=== PATIENT | male | born 1980 | race Caucasian/White ===

== ENCOUNTER 2023-12-12 17:56 | Observation (INO) | payer BC, SELFPAY ==
[2023-12-12] VITALS (8 sets, daily range): BP systolic 126–150; BP diastolic 86–106; PULSE 98–123; RESP 15–21; TEMP 36.9–38.3; O2SAT 93–97
--- NOTE | ~2023-12-12 | XR_ITS ---
EXAMINATION: XR chest 2V DATE: 12/12/2023 21:34 INDICATION: Multifocal pneumonia. TECHNIQUE: Frontal and lateral views of the chest were obtained. COMPARISON: Chest 2 views 05/08/2019, CT abdomen and pelvis 12/12/2023 FINDINGS: There are patchy airspace opacities in the mid and lower lung zones, consistent with pneumo stacie. No pleural effusion or pneumothorax. The heart size is normal. IMPRESSION: 1. Patchy airspace opacities in the mid and lower lung zones, consistent with pneumonia. Reviewed, dictated and finalized at location E. CATION COMMISSIONER IMPRESSION: 1. Patchy airspace opacities in the mid and lower lung zones, consistent with p neumonia.
--- NOTE | ~2023-12-12 | XR_ITS ---
EXAMINATION: XR chest 1V portable DATE: 12/14/2023 02:20 INDICATION: Left chest pain. Shortness of breath. TECHNIQUE: A single frontal view of the chest was obtained. COMPARISON: Chest 2 views 12/12/2023, CT abdomen and pelvis 12/12/2023 FINDINGS: There are patchy airspace opacities in the mid and lower lung zones. No pleural effusion or pneumothorax. The heart size is normal. IMPRESSION: 1. Worsened patchy airspace opacities in the mid and lower lung zones, consistent with pneumonia. Reviewed, dictated and finalized at location E. RADIANT ANALYST IMPRESSION: 1. Worsened patchy airspace opacities in the mid and lower lung zones, consiste nt with pneumonia.
--- NOTE | ~2023-12-12 | CT_ITS ---
EXAMINATION: CT abdomen pelvis w con DATE: 12/12/2023 20:01 INDICATION: Right upper quadrant abdominal pain. Vomiting. TECHNIQUE: Computed tomography (CT) of the abdomen and pelvis was performed with 100 mL Omnipaque 350 intravenous contrast. Automated exposure control and iterative reconstruction technique were employe d. The dose-length product was 487.91 mGy-cm. COMPARISON: Chest 2 views 05/08/2019 FINDINGS: The visualized portions of the lung bases demonstrate scattered nodules, groundglass opacit ies, and tree-in-bud opacities in the lower lobes, right middle lobe, and lingula, consistent with pn eumonia. No pleural effusion. The heart size is normal. No pericardial effusion. The liver, gallbladd er, spleen, pancreas, adrenal glands, and kidneys are normal. There are no dilated loops of bowel. Th e appendix is not visualized. There are no pathologically enlarged lymph nodes. There is no free intr aperitoneal fluid. There is severe lumbar spondylosis. IMPRESSION: 1. Multifocal pneumonia. Reviewed, dictated and finalized at location E. ACTORY MANAGER IMPRESSION: 1. Multifocal pneumonia.
--- NOTE | ~2023-12-12 | CT_ITS ---
EXAMINATION: CTA chest PE protocol DATE: 12/14/2023 11:31 INDICATION: Left-sided pleuritic chest pain. TECHNIQUE: Computed tomography angiography (CTA) of the chest was performed with 100 mL Omnipaque-350 intravenous contrast timed to evaluate the pulmonary arteries. Coronal maximum intensity projection 3D-reconstructions were created by the technologist. Automated exposure control and iterative reconst ruction technique were employed. The dose-length product was 504.24 mGy-cm. COMPARISON: CT abdomen and pelvis 12/12/2023 FINDINGS: There is mild emphysema. There are scattered groundglass opacities and small airspace opaci ties involving all lobes, consistent with pneumonia. There are trace pleural effusions. The heart siz e is normal. No pericardial effusion. There is no pulmonary embolus. There is mild bilateral hilar ly mphadenopathy, likely reactive. There is mild thoracic spondylosis. There is mild chronic anterior we dging of T11 and T12 vertebral bodies. IMPRESSION: 1. No pulmonary embolus. 2. Multifocal pneumonia. 3. Mild emphysema. 4. Mild bilateral hilar lymphadenopathy, likely reactive. Reviewed, dictated and finalized at location E. ORK COORDINATOR
--- NOTE | 2023-12-12 18:50 | ED.GENADULT ---
HPI - General Adult General Chief complaint: Upper Respiratory Infection <KENDRA Jay Last Filed: 12/12/23 18:53> Stated complaint: nausea, bodyaches <KENDRA Jay Last Filed: 12/12/23 18:53> Time Seen by Provider: 12/12/23 18:50 <Shane Solares PA-C - Last Filed: 12/12/23 18:53> Focused HPI: This is a 42-year-old male who presents to the ED with chief complaint of N/V/D for the past 4 days. He also reports generalized abdominal pain worse on the right side. He had negative COVID, flu and RSV swabs Urgent Care today. States he is unable to tolerate p.o.. denies urinary symptoms, GI bleeding symptoms, chest pain, shortness of breath. GENERAL: Well-appearing, well-nourished, and in no acute distress. HEAD: Normocephalic, atraumatic. CHEST: Clear to auscultation. No respiratory distress. HEART: Regular rate and rhythm. NEURO: Alert and oriented x3. Patient screened in triage and initial orders placed. Additional care and disposition to be based upon diagnostic testing and treatment. <KENDRA Jay Last Filed: 12/12/23 18:53> Source: patient <Shane Solares PA-C - Last Filed: 12/12/23 18:53> Mode of arrival: ambulatory <KENDRA Jay Last Filed: 12/12/23 18:53> Limitations: no limitations <KENDRA Jay Last Filed: 12/12/23 18:53> History of Present Illness HPI narrative: Patient does report to me persistent fevers, diffuse body aches, shortness breath, productive cough. Denies chest pain. Family members have been sick with similar symptoms. <Kat Bo PA-C - Last Filed: 12/12/23 23:52> Related Data Home medications: Home Medications Medication Instructions Recorded Confirmed No Home Medications 12/13/23 12/13/23 <KENDRA Jay Last Filed: 12/12/23 18:53> Allergies/adverse reactions: Allergies Allergy/AdvReac Type Severity Reaction Status Date / Time Penicillins Allergy Unknown Verified 05/18/17 09:39 <Shane Solares PA-C - Last Filed: 12/12/23 18:53> Review of Systems Review of Systems: CONSTITUTIONAL: See HPI. CARDIOVASCULAR: Denies chest pain. RESPIRATORY: See HPI. GASTROINTESTINAL: See HPI. GENITOURINARY: Denies dysuria or hematuria. MUSCULOSKELETAL: Reports myalgia. NEUROLOGIC: Denies headache, dizziness, numbness, or weakness. <Kat Bo PA-C - Last Filed: 12/12/23 23:52> All systems reviewed & are unremarkable except as noted in HPI and below <Kat Bo PA-C - Last Filed: 12/12/23 23:52> PMFSH Family History Family History: Family History (Updated 12/13/23 @ 01:04 by Birdie Maguire RN) Father Diabetes mellitus Kidney replaced by transplant Mother Heart disease <Shane Solares PA-C - Last Filed: 12/12/23 18:53> Social History Social History: Social History Smoking packs per day: 1 Smoking cigarettes per day: 20.0 Smoking status: Current every day smoker Tobacco type: cigarettes Alcohol intake: current Drinks per week: 6 Substance use: current Substance use type: marijuana Do You Feel Safe in your Home?: Yes Lack of Transportation: No Lack of Food: Never True Current Housing: I Have Housing Concerned About Future Housing: No Difficulty Paying Gas/Electric Bills: No Difficulty Paying for Meds: No Currently Unemployed: No Education: Associate Degree Difficulty w/ Childcare or Family Care: No Spiritual care concerns: No <KENDRA Jay Last Filed: 12/12/23 18:53> Exam Narrative: GENERAL: Mildly ill, flushed appearing, well-nourished. HEAD: Normocephalic, atraumatic. RESPIRATORY: Airway patent, respirations nonlabored. Clear to auscultation bilaterally, no rales, rhonchi, wheezing. No significant focal lung sounds. CARDIOVASCULAR: Tachycardic with regular rhythm without murmurs, rubs, or gallops. ABDOMINAL
[2023-12-12] MEDS: ONDANSETRON INJ 4 MG/2 ML VIAL IV PUSH ×2 (19:10→21:50)
[2023-12-12 19:24] LABS: Basophils Percent Auto 0.3 % (0.2-1.2); Hematocrit 44.8 % (42.0-52.0); Hemoglobin 15.4 g/dL (14.0-18.0); Immature Granulocyte Absolute 0.02 K/mm3 (0.00-0.031); Immature Granulocyte Percent A 0.3 % (0-0.5); Immature Platelet Fraction Pct 7.1 % (0.9-11.2); Lymphocytes Absolute Auto 0.71 K/mm3 (0.9-3.2); Lymphocytes Percent Auto 11.9 % (18.3-44.2); Mean Corpuscular HGB Conc 34.4 g/dl (32-36); Mean Corpuscular Hemoglobin 31.6 pg (26-34); Mean Platelet Volume 10.4 fl (7.4-10.4); Monocytes Absolute Auto 0.8 K/mm3 (0.1-0.6); Neutrophils Absolute Auto 4.5 K/mm3 (1.3-6.7); Neutrophils Percent Auto 74.5 % (45.5-73.1); Platelet Count Result 142 k/mm3 (150-375); Red Blood Count 4.87 M/mm3 (4.6-6.20); Red Cell Distribution Width 12.5 % (11.5-14.5)
[2023-12-12 19:31] LABS: Appearance Urine Clear (Clear); Bacteria Urine None Seen /hpf; Bilirubin Urine 1+ (Negative); Blood Urine Negative (Negative); Color Urine Dark Yellow (Yellow); Glucose Urine UA Negative (Negative); Ketones Urine 2+ mg/dL (Negative); Leukocyte Esterase Ur Negative LEU/UL (Negative); Nitrate Urine Negative (Negative); Non Pathogenic Casts 0-2; Protein Urine 2+ mg/dL (Negative); Specific Grav Ur 1.028 (1.001-1.035); Squamous Epithelial Cell Urine Occasional /hpf (Few); WBC Urine 0-5 /hpf; pH Urine 6.5 (5.0-9.0)
[2023-12-12 19:33] LABS: Alanine Aminotransferase 32 U/L (6-50); Albumin Level 4.2 g/dL (3.5-5.1); Alkaline Phosphatase 72 U/L (38-126); Anion Gap 11 mmol/L (8-16); Aspartate Amino Transferase 30 U/L (17-59); Bilirubin,Total 1.2 mg/dL (0.2-1.3); Blood Urea Nitrogen 10 mg/dL (9-20); Calcium 8.8 mg/dL (8.4-10.2); Carbon Dioxide 31 mmol/L (22-30); Chloride 87 mmol/L (98-107); Estimated CRCL calculation 118 ml/min; Estimated Glomerular Filt Rate > 60; Glucose 113 mg/dL (65-110); Lipase 32 U/L (23-300); Potassium 3.1 mmol/L (3.4-5.0); Sodium 129 mmol/L (137-145)
[2023-12-12 19:56] LABS: Add Urine Microscopic? YES
[2023-12-12] MEDS: ACETAMINOPHEN 500 MG TABLET 1000 MG PO (21:50)
[2023-12-12] MEDS: SODIUM CHLORIDE 0.9% IV 1,000 ML 999 ML IV CONT ×2 (21:51→21:52)
[2023-12-12 22:11] LABS: Lactic Acid Reflex 0.9 mmol/L (0.7-2.0)
[2023-12-12 22:15] LABS: Magnesium 1.7 mg/dL (1.6-2.3)
[2023-12-12 22:50] LABS: Influenza A QL RT-PCR Positive (Negative); Influenza B QL RT-PCR Negative (Negative); RSV RNA, RT-PCR Negative (Negative); SARS-CoV-2 RNA PCR Negative (Negative)
[2023-12-12] MEDS: POTASSIUM CHLORIDE INJ 40 MEQ in SODIUM CHLORIDE 0.9% IV 500 ML 130 MEQ IVPB (22:53)
--- NOTE | 2023-12-12 23:46 | PM.IMHP ---
H&P: HPI History of Present Illness Date/Time: 12/12/23 23:46 Chief Complaint: sob Narrative: This is a 42-year-old male with past medical history significant for tobacco dependence, patient presents to the emergency room due to 4-5 days of cough, shortness of breath, generalized malaise, body aches and pains, chills, fevers, poor per orally intake. Preliminary workup was significant for chest x-ray with lung infiltrates, patient tested positive for influenza type A, tested negative for influenza type B RSV and COVID. Patient has been admitted for further evaluation management and treatment. EXAMINATION: CT abdomen pelvis w con DATE: 12/12/2023 20:01 INDICATION: Right upper quadrant abdominal pain. Vomiting. TECHNIQUE: Computed tomography (CT) of the abdomen and pelvis was performed with 100 mL Omnipaque 350 intravenous contrast. Automated exposure control and iterative reconstruction technique were employed. The dose-length product was 487.91 mGy-cm. COMPARISON: Chest 2 views 05/08/2019 FINDINGS: The visualized portions of the lung bases demonstrate scattered nodules, groundglass opacities, and tree-in-bud opacities in the lower lobes, right middle lobe, and lingula, consistent with pneumonia. No pleural effusion. The heart size is normal. No pericardial effusion. The liver, gallbladder, spleen, pancreas, adrenal glands, and kidneys are normal. There are no dilated loops of bowel. The appendix is not visualized. There are no pathologically enlarged lymph nodes. There is no free intraperitoneal fluid. There is severe lumbar spondylosis. IMPRESSION: 1. Multifocal pneumonia. EXAMINATION: XR chest 2V DATE: 12/12/2023 21:34 INDICATION: Multifocal pneumonia. TECHNIQUE: Frontal and lateral views of the chest were obtained. COMPARISON: Chest 2 views 05/08/2019, CT abdomen and pelvis 12/12/2023 FINDINGS: There are patchy airspace opacities in the mid and lower lung zones, consistent with pneumonia. No pleural effusion or pneumothorax. The heart size is normal. IMPRESSION: 1. Patchy airspace opacities in the mid and lower lung zones, consistent with pneumonia. Review of Systems Review of Systems: Shortness of breath, cough generalized malaise, body aches and pains, poor appetite. Constitutional: Constitutional: Reports chills, Reports fatigue, Reports fever(s), Reports lethargy, Reports malaise, Reports poor appetite and Reports weakness Eyes: Eyes: Denies change in vision ENT: Denies dysphagia and Denies odynophagia Cardiovascular: Cardiovascular: Denies chest pain, Denies radiating jaw, neck or arm pain and Denies palpitations Respiratory: Respiratory: Reports change in phlegm color, Reports chest congestion, Reports cough and Reports dyspnea Gastrointestinal: Gastrointestinal: Denies abdominal pain, Denies dyspepsia, Denies nausea and Denies vomiting Genitourinary: Genitourinary: Denies dysuria Musculoskeletal: Musculoskeletal: Reports myalgias Integumentary/Breasts: Skin/Breast: Denies rash Neurologic: Denies focal weakness and Denies Sensory deficit (Neuro) Psychiatric: Psychiatric: Reports no additional psychiatric complaints and Reports as per HPI Endocrine: Endocrine: Denies cold intolerance, Denies fatigue, Denies flushing, Denies heat intolerance, Denies polyphagia, Denies polydipsia and Denies palpitations Hematologic/Lymphatic: Hematologic/Lymphatic: Reports no additional hematologic/lymphatic complaints and Reports as per HPI Allergic/Immunologic: Allergic/Immunologic: Reports no additional allergic/immunologic complaints and Reports as per HPI PMFSH Family History Family History (Updated 12/13/23 @ 01:04 by Birdie Maguire RN) Father Diabetes mellitus Kidney replaced by transplant Mother Heart disease Social History Social History Smoking packs per day: 1 Smoking cigarettes per day: 20.0 Smoking status: Kiersten
[2023-12-12] MEDS: AZITHROMYCIN 500 MG/NS 250 ML 500 MG/250 ML BAG 250 MG IVPB (23:54)
[2023-12-13] VITALS (16 sets, daily range): BP systolic 124–149; BP diastolic 76–89; PULSE 72–113; RESP 16–24; TEMP 36.5–37.3; O2SAT 93–99; BMI 24.7
--- NOTE | 2023-12-13 00:12 | ECG_ITS ---
Measurements Intervals [place] Rate: 97 P: -25 HI: 92 QRS: 68 QRSD: 110 T: 51 QT: 355 QTc: 451 Interpretive Statements SINUS RHYTHM WITH SHORT HI INTERVAL BASELINE ARTIFACT- I, II, III, AVR, AVL BORDERLINE ECG NO PREVIOUS ECG AVAILABLE FOR COMPARISON Electronically Signed On 12-13-2023 7:36:31 QUALITY SYSTEMS MANAGER by Esau Washington D.O.
--- NOTE | 2023-12-13 00:46 | ADMGEN ---
This patient, Abdias Corrales, was admitted to Medical Room 253-01. Patient/family oriented to hospital policies and general routines including ID bracelet, bed and alarms, visiting hours, pain management, procedures, bathroom and other care routines, personal items, smoking policy, room service/diet, and visiting hours. Information on how to activate the Rapid Response Team has been discussed. Patient/Family are encouraged to report perceived risks to care and to ask questions if they do not understand what they are told or what they should do.
[2023-12-13] MEDS: SODIUM CHLORIDE 0.9% IV 1,000 ML 100 ML IV CONT (01:12)
[2023-12-13 05:31] LABS: Basophils Percent Auto 0.2 % (0.2-1.2); Hematocrit 40.5 % (42.0-52.0); Immature Granulocyte Absolute 0.01 K/mm3 (0.00-0.031); Immature Granulocyte Percent A 0.2 % (0-0.5); Immature Platelet Fraction Pct 6.7 % (0.9-11.2); Lymphocytes Absolute Auto 0.66 K/mm3 (0.9-3.2); Lymphocytes Percent Auto 13.8 % (18.3-44.2); Mean Corpuscular HGB Conc 34.6 g/dl (32-36); Mean Corpuscular Hemoglobin 31.7 pg (26-34); Mean Corpuscular Volume 91.8 fl (80-100); Mean Platelet Volume 10.6 fl (7.4-10.4); Monocytes Absolute Auto 0.7 K/mm3 (0.1-0.6); Monocytes Percent Auto 13.6 % (2.6-8.5); Neutrophils Absolute Auto 3.5 K/mm3 (1.3-6.7); Neutrophils Percent Auto 72.2 % (45.5-73.1); Platelet Count Result 121 k/mm3 (150-375); Red Blood Count 4.41 M/mm3 (4.6-6.20); Red Cell Distribution Width 12.6 % (11.5-14.5); White Blood Count 4.8 K/mm3 (4.5-10.0)
[2023-12-13 05:42] LABS: Anion Gap 6 mmol/L (8-16); Blood Urea Nitrogen 6 mg/dL (9-20); Calcium 7.9 mg/dL (8.4-10.2); Carbon Dioxide 27 mmol/L (22-30); Chloride 102 mmol/L (98-107); Creatine Kinase 80 U/L (55-170); Estimated CRCL calculation 136 ml/min; Estimated Glomerular Filt Rate > 60; Glucose 102 mg/dL (65-110); Magnesium 1.9 mg/dL (1.6-2.3); Phosphorus 2.7 mg/dL (2.5-4.5); Potassium 3.4 mmol/L (3.4-5.0); Sodium 135 mmol/L (137-145)
[2023-12-13 05:50] LABS: Platelet Estimate Adequate (Adequate)
[2023-12-13 05:51] LABS: Schistocytes None Seen (NORMAL)
[2023-12-13] MEDS: IPRATROPIUM 0.5 MG/ALBUTEROL SULFATE 2.5 MG AMPUL.NEB 3 ML INHALATION ×3 (08:00→20:49)
[2023-12-13] MEDS: VANCOMYCIN 2,000 MG/NS 500 ML 2,000 MG/500 ML BAG 250 MG IVPB (08:26)
[2023-12-13] MEDS: ENOXAPARIN 40 MG/0.4 ML SYRINGE SUB-Q (08:26)
[2023-12-13] MEDS: NICOTINE (*PBKC) 21 MG PATCH 1 PATCH TRANSDERM (08:26)
[2023-12-13] MEDS: PANTOPRAZOLE 40 MG TABLET PO (08:27)
[2023-12-13] MEDS: POTASSIUM CHLORIDE 20 MEQ ER TABLET 40 MEQ PO (08:27)
[2023-12-13 08:41] LABS: MRSA (PCR) NOT DETECTED (NOT DETECTE)
--- NOTE | 2023-12-13 11:36 | PM.IMPN ---
Progress Note: A&P Assessment and Plan (1) Multifocal pneumonia: Code(s): J18.9 - Pneumonia, unspecified organism Status: Acute Assessment and Plan: CXR showing patchy airspace opacities in his lower lung zones. Lung bases by a a CT of the abdomen showed scattered nodules, ground-glass opacities and tree-in-bud opacities in the lower lobes, right middle lobe and lingula consistent with pneumonia. No pleural effusions. Influenza B, RSV and COVID PCR were negative. He was positive for influenza A. He was started on Rocephin and azithromycin after blood cultures collected. Blood cultures pending. Patient feeling better. He remains on room air. Add vancomycin and check MRSA nasal swab. Continue current IV antibiotics (2) Sepsis: Qualifiers: Sepsis acute organ dysfunction status: unspecified Sepsis type: sepsis due to unspecified organism Qualified Code(s): A41.9 - Sepsis, unspecified organism Code(s): A41.9 - Sepsis, unspecified organism Status: Acute Assessment and Plan: Patient presents with nausea and body aches and found to have sepsis with low-grade temperature, tachycardia Patient still with tachycardia. Probably related to dehydration given low sodium. Doubt PE given a more likely diagnosis of pneumonia. Continue IV fluids. Monitor on telemetry. (3) Hypokalemia: Code(s): E87.6 - Hypokalemia Status: Acute Assessment and Plan: Potassium 3.1 on admission this was replaced. Potassium normal but still low end so will replace again. (4) Hyponatremia: Code(s): E87.1 - Hypo-osmolality and hyponatremia Status: Acute Assessment and Plan: Sodium 129 on admission. Likely related to poor per orally intake IV fluids started. Sodium has improved. Continue to follow-up (5) Influenza A: Code(s): J10.1 - Influenza due to other identified influenza virus with other respiratory manifestations Status: Acute Assessment and Plan: Patient started having symptoms about 4 days ago. He is out of the window for Tamiflu. He is clinically improving and at this point did not feel Tamiflu would be of benefit for him. Supportive care (6) Tobacco dependence: Code(s): F17.200 - Nicotine dependence, unspecified, uncomplicated Status: Acute Assessment and Plan: Patient was educated about the benefits of smoking cessation. Plan Mild thrombocytopenia -probably related to the viral illness. Follow. Monitor closely while on Lovenox DVT prophylax -Lovenox Code status -full Subjective Date/time seen: 12/13/23 11:36 Interval history: 42yo healthy male here for nausea and body aches and found to have influenza A and PNA. Assuming care. Chart reviewed. Patient denies feeling short of breath. His cough is mostly dry now. No nausea or vomiting. He is up walking to the bathroom. Denies drug use. No heavy alcohol use. He smokes 1 pack per day. Exam Narrative: Tm 100.9 99.1 149/89 109 20 93% ra Gen - NARD Chest - L>R bibasilar inspiratory crackles. Nml RR CV - tachycardic, regular. Tele showing sinus tachycardia with rate mostly 110 range. Abd - Soft, NT/ND, Positive BS Ext - No pedal edema Psych - Nml mood and affect Skin - Warm and dry Objective Data Vital Signs Vital Signs: Vital Signs - 24 hr 12/12/23 18:11 12/12/23 21:20 12/12/23 23:59 Temperature 100.9 F H 98.5 F 99.2 F Pulse Rate 117 H 117 H 98 Respiratory Rate 20 15 15 Blood Pressure 126/106 H 146/86 H 132/89 Pulse Oximetry 97 93 95 Oxygen Delivery Room Air Room Air 12/12/23 21:07 12/12/23 22:00 12/12/23 22:15 Temperature Pulse Rate 117 H 123 H 109 H Respiratory Rate 21 H 20 20 Blood Pressure 150/89 H Pulse Oximetry 96 95 95 Oxygen Delivery 12/12/23 22:40 12/12/23 22:45 12/13/23 00:59 Temperature 97.7 F Pulse Rate 107 H 106 H 100 Respiratory Rate 19 20 16 Blood Pressure 125/77 Puls
[2023-12-13] MEDS: SODIUM CHLORIDE 0.9% IV 1,000 ML 70 ML IV CONT (12:00)
[2023-12-13] MEDS: AZITHROMYCIN 500 MG/NS 250 ML 500 MG/250 ML BAG 250 MG IVPB (22:56)
[2023-12-14] VITALS (10 sets, daily range): BP systolic 126–141; BP diastolic 76–99; PULSE 80–106; RESP 18–22; TEMP 36.6; O2SAT 94–97
[2023-12-14] MEDS: ACETAMINOPHEN 500 MG TABLET 1000 MG PO ×2 (01:46→08:39)
[2023-12-14] MEDS: IPRATROPIUM 0.5 MG/ALBUTEROL SULFATE 2.5 MG AMPUL.NEB 3 ML INHALATION ×3 (01:49→13:23)
[2023-12-14] MEDS: HYDROmorphone HCL INJ (*CRX) 1 MG/ML SYR IV PUSH (02:20)
[2023-12-14] MEDS: SODIUM CHLORIDE 0.9% IV 1,000 ML 70 ML IV CONT (05:20)
[2023-12-14 05:55] LABS: Basophils Percent Auto 0.2 % (0.2-1.2); Eosinophils Percent Auto 0.2 % (0-4.4); Hematocrit 36.4 % (42.0-52.0); Hemoglobin 12.1 g/dL (14.0-18.0); Immature Granulocyte Absolute 0.02 K/mm3 (0.00-0.031); Immature Granulocyte Percent A 0.5 % (0-0.5); Immature Platelet Fraction Pct 6.3 % (0.9-11.2); Lymphocytes Absolute Auto 0.97 K/mm3 (0.9-3.2); Lymphocytes Percent Auto 24.1 % (18.3-44.2); Mean Corpuscular HGB Conc 33.2 g/dl (32-36); Mean Corpuscular Hemoglobin 31.8 pg (26-34); Mean Corpuscular Volume 95.5 fl (80-100); Mean Platelet Volume 10.4 fl (7.4-10.4); Monocytes Absolute Auto 0.5 K/mm3 (0.1-0.6); Monocytes Percent Auto 13.2 % (2.6-8.5); Neutrophils Absolute Auto 2.5 K/mm3 (1.3-6.7); Neutrophils Percent Auto 61.8 % (45.5-73.1); Platelet Count Result 148 k/mm3 (150-375); Red Blood Count 3.81 M/mm3 (4.6-6.20); Red Cell Distribution Width 12.9 % (11.5-14.5)
[2023-12-14 06:10] LABS: Anion Gap 6 mmol/L (8-16); Blood Urea Nitrogen 3 mg/dL (9-20); Calcium 7.7 mg/dL (8.4-10.2); Carbon Dioxide 26 mmol/L (22-30); Chloride 103 mmol/L (98-107); Estimated CRCL calculation 161 ml/min; Estimated Glomerular Filt Rate > 60; Glucose 107 mg/dL (65-110); Magnesium 1.9 mg/dL (1.6-2.3); Potassium 3.1 mmol/L (3.4-5.0); Sodium 135 mmol/L (137-145)
[2023-12-14] MEDS: POTASSIUM CHLORIDE 20 MEQ ER TABLET 40 MEQ PO (08:38)
[2023-12-14] MEDS: PANTOPRAZOLE 40 MG TABLET PO (08:38)
[2023-12-14] MEDS: ENOXAPARIN 40 MG/0.4 ML SYRINGE SUB-Q (08:39)
[2023-12-14] MEDS: NICOTINE (*PBKC) 21 MG PATCH 1 PATCH TRANSDERM (08:40)
--- NOTE | 2023-12-14 13:43 | PM.DS ---
DS: Admitting Diagnosis Discharge Date 12/14/23 Admitting Diagnosis Nausea and body aches DS: Discharge Diagnosis Discharge Diagnosis (1) Multifocal pneumonia: Code(s): J18.9 - Pneumonia, unspecified organism Status: Acute (2) Sepsis: Qualifiers: Sepsis acute organ dysfunction status: unspecified Sepsis type: sepsis due to unspecified organism Qualified Code(s): A41.9 - Sepsis, unspecified organism Code(s): A41.9 - Sepsis, unspecified organism Status: Acute (3) Hypokalemia: Code(s): E87.6 - Hypokalemia Status: Acute (4) Hyponatremia: Code(s): E87.1 - Hypo-osmolality and hyponatremia Status: Acute (5) Influenza A: Code(s): J10.1 - Influenza due to other identified influenza virus with other respiratory manifestations Status: Acute (6) Thrombocytopenia: Code(s): D69.6 - Thrombocytopenia, unspecified Status: Acute (7) Tobacco dependence: Code(s): F17.200 - Nicotine dependence, unspecified, uncomplicated Status: Acute DS: Summary Hospital Course Reason for hospitalization: 42yo healthy male here for nausea and body aches and found to have influenza A and PNA. Please see H&P for details. Hospital Course: Patient presents with nausea and body aches and found to have sepsis with low-grade temperature, tachycardia. Tachycardia may also be related to dehydration given low sodium.?CXR showing patchy airspace opacities in his lower lung zones.? Lung bases by a CT of the abdomen showed scattered nodules, ground-glass opacities and tree-in-bud opacities in the lower lobes, right middle lobe and lingula consistent with pneumonia.? No pleural effusions. Influenza B, RSV and COVID PCR were negative.? He was positive for influenza A. He was started on Rocephin and azithromycin after blood cultures collected. Blood cultures no growth to date. He remains on room air.? MRSA nasal swab was negative. Potassium 3.1 on admission this was replaced.?Sodium 129 on admission.? Likely related to poor oral intake. Patient started having symptoms about 4 days ago.? He is out of the window for Tamiflu. Patient was educated about the benefits of smoking cessation. He had mild thrombocytopenia probably related to the viral illness.?Repeat levels improved. He was started on IV fluids. Heart rate improved. He is clinically improving. He has been up ambulating in the room. he felt comfortable with discharge. Patient overall did well and was discharged home on 12/14/23 Status at Discharge Cognitive/behavioral status at discharge: stable Time Spent with Patient Time attestation: Total time spent providing and/or coordinating discharge services: 37 minutes Time spent: Greater than 30 minutes Exam Narrative: AF 97.9 141/99 98 20 94% ra Gen - NARD Chest - few scattered rhonchi. Nml RR CV - RRR, S1/S2. Tele showing no significant dysrhythmias Abd - Soft, NT/ND, Positive BS Ext - No pedal edema Psych - Nml mood and affect Skin - Warm and dry DS: Data Data Completed and Pending Labs on day of discharge: Labs from last 24 hours 12/14/23 05:25 WBC 4.0 L RBC 3.81 L Hgb 12.1 L Hct 36.4 L MCV 95.5 MCH 31.8 MCHC 33.2 RDW 12.9 Plt Count 148 L MPV 10.4 Immature Gran % (Auto) 0.5 Neut % (Auto) 61.8 Lymph % (Auto) 24.1 [place] % (Auto) 13.2 H Eos % (Auto) 0.2 Baso % (Auto) 0.2 Lymph # (Auto) 0.97 [place] # (Auto) 0.5 Eos # (Auto) 0.0 Baso # (Auto) 0.0 Abs Immat Gran (auto) 0.02 Absolute Neuts (auto) 2.5 Absolute Nucleated RBC 0.0 Nucleated RBC % 0.0 % Immature Plt Fraction 6.3 Sodium 135 L Potassium 3.1 L Chloride 103 Carbon Dioxide 26 Anion Gap 6 L BUN 3 L Creatinine 0.50 L Estim Creat Clear Calc 161 Estimated GFR > 60 Glucose 107 Calcium 7.7 L Magnesium 1.9 Preliminary micro results at discharge 12/12/23 21:49 Blood Culture - Preliminary Blood 12/12/23 21:49 Blood Culture
[2023-12-15 06:09] LABS: Legionella pneumophila Ag Ur Not Detected (Not Detected)
--- NOTE | 2023-12-20 09:04 | PC.NURSE ---
Urine Legionella is not detected. Blood cultures are negative. Dr. Arturo carrington.
== END 2023-12-14 17:03 | disposition home or self-care (01) ==
LOC: ANHED 23:04 → ANH2MED 12-13 02:53
PROVIDERS: Physician Assistant; Admitting Provider Internal Medicine; Emergency Provider Physician Assistant; Visit Provider Internal Medicine
DX: A41.9 Sepsis, unspecified organism (principal); J18.9 Pneumonia, unspecified organism; J10.1 Influenza due to other identified influenza virus with other respiratory manifestations; E87.1 Hypo-osmolality and hyponatremia; E87.6 Hypokalemia; D69.6 Thrombocytopenia, unspecified; R59.0 Localized enlarged lymph nodes; J43.9 Emphysema, unspecified; Z20.822 Contact with and (suspected) exposure to COVID-19; F17.210 Nicotine dependence, cigarettes, uncomplicated; F10.90 Alcohol use, unspecified, uncomplicated; F12.90 Cannabis use, unspecified, uncomplicated
CPT/HCPCS: 36415; 71045; 71046; 71275; 74177; 80048; 80076; 81001; 82550; 83605; 83690; 83735; 84100; 85025; 85055; 87040; 87449; 87637; 87641; 93005; 94640; 96361; 96365; 96366; 96367; 96368; 96372; 96375; 96376; 99285; A9270; G0378; J0456; J0696; J1170; J1650; J2405; J3370; J3480; J7030; J7040; Q9967

== ENCOUNTER 2024-09-17 15:08 | Emergency (ER) | payer OTHER, BC, SELFPAY ==
[2024-09-17] VITALS (8 sets, daily range): BP systolic 107–128; BP diastolic 72–99; PULSE 71–114; RESP 18–20; TEMP 36.3–36.9; O2SAT 94–95
--- NOTE | ~2024-09-17 | XR_ITS ---
EXAMINATION: XR chest 1V portable 09/17/2024 17:49 INDICATION: Pneumonia PROCEDURE: 2 view chest COMPARISON: CT dated 09/17/2024 and chest dated 12/14/2023 FINDINGS: There are subtle reticulonodular densities of the mid and lower thoraces, consistent with p neumonia. The cardiomediastinal silhouette is within normal limits. There are no pleural effusions. There is no pneumothorax suspected. IMPRESSION: 1: Subtle bilateral reticulonodular densities, consistent with pneumonia.. Reviewed, dictated and finalized at location B.
--- NOTE | ~2024-09-17 | CT_ITS ---
EXAMINATION: CT abdomen pelvis w con DATE: 09/17/2024 17:15 INDICATION: Abdominal distention, nausea and vomiting TECHNIQUE: Computed tomography (CT) of the abdomen and pelvis was performed with 100 cc Omnipaque 350 intravenous contrast. The dose-length product was 810.92 mGy-cm. Automated exposure control and iter ative reconstruction technique were employed. COMPARISON: CT dated 12/12/2023. FINDINGS: There are patchy groundglass and nodular density in the right lower lobe and lingula and to a lesser degree left lower lobe, consistent with pneumonia, although improved compared with prior ex amination. Heart size normal. No significant vascular abnormality. No lymphadenopathy. Fatty infiltra tion of the liver. The spleen, pancreas, adrenal glands and kidneys are unremarkable. Gallbladder is present. Nonobstructive bowel gas pattern. No free air or free fluid. Gallbladder is present. No lymp hadenopathy. No abnormal pelvic masses or fluid collections. IMPRESSION: 1. Multifocal pneumonia. Reviewed, dictated and finalized at location B. IMPRESSION: 1. Multifocal pneumonia.
--- NOTE | 2024-09-17 15:31 | ECG_ITS ---
Test Date: 2024-09-17 15:44:42 Measurements Intervals [place] Rate: 112 P: 19 MN: 121 QRS: 47 QRSD: 97 T: 42 QT: 324 QTc: 443 Interpretive Statements SINUS TACHYCARDIA CANNOT RULE OUT INFERIOR MYOCARDIAL INFARCTION, AGE UNDETERMINED ABNORMAL ECG No previous ECG available for comparison Electronically Signed On 09-18-2024 10:14:11 CDT by Abdias Noriega M.D.
[2024-09-17 15:50] LABS: Basophils Percent Auto 0.4 % (0.2-1.2); Eosinophils Absolute Auto 0.2 K/mm3 (0-0.3); Eosinophils Percent Auto 1.8 % (0-4.4); Hematocrit 48.8 % (42.0-52.0); Hemoglobin 17.2 g/dL (14.0-18.0); Immature Granulocyte Absolute 0.03 K/mm3 (0.00-0.031); Immature Granulocyte Percent A 0.3 % (0-0.5); Lymphocytes Absolute Auto 2.25 K/mm3 (0.9-3.2); Lymphocytes Percent Auto 23.3 % (18.3-44.2); Mean Corpuscular HGB Conc 35.2 g/dl (32-36); Mean Corpuscular Hemoglobin 34.6 pg (26-34); Mean Corpuscular Volume 98.2 fl (80-100); Mean Platelet Volume 9.6 fl (7.4-10.4); Monocytes Absolute Auto 0.7 K/mm3 (0.1-0.6); Neutrophils Absolute Auto 6.5 K/mm3 (1.3-6.7); Neutrophils Percent Auto 67.2 % (45.5-73.1); Platelet Count Result 249 k/mm3 (150-375); Red Blood Count 4.97 M/mm3 (4.6-6.20); Red Cell Distribution Width 13.3 % (11.5-14.5); White Blood Count 9.7 K/mm3 (4.5-10.0)
[2024-09-17 15:53] LABS: Alanine Aminotransferase 96 U/L (6-50); Albumin Level 4.5 g/dL (3.5-5.1); Alkaline Phosphatase 112 U/L (38-126); Anion Gap 12 mmol/L (4-12); Aspartate Amino Transferase 111 U/L (17-59); Bilirubin,Total 0.7 mg/dL (0.2-1.3); Blood Urea Nitrogen 7 mg/dL (9-20); Carbon Dioxide 29 mmol/L (22-30); Chloride 100 mmol/L (98-107); Estimated CRCL calculation 137 ml/min; Estimated Glomerular Filt Rate > 60; Glucose 102 mg/dL (65-110); Lipase 88 U/L (23-300); Potassium 3.6 mmol/L (3.4-5.0); Sodium 141 mmol/L (137-145)
[2024-09-17 16:05] LABS: Troponin I < 0.012 ng/mL (0.000-0.034)
[2024-09-17] MEDS: ONDANSETRON INJ 4 MG/2 ML VIAL IV PUSH (16:42)
[2024-09-17] MEDS: PANTOPRAZOLE SODIUM IV 40 MG VIAL IV PUSH (16:42)
[2024-09-17] MEDS: FAMOTIDINE 20 MG/2 ML VIAL IV PUSH (16:42)
--- NOTE | 2024-09-17 16:47 | ED.ABDPAIN ---
HPI - Abdominal Pain General Chief Complaint: Abdominal Pain Stated Complaint: abd pain Time Seen by Provider: 09/17/24 15:14 History of Present Illness HPI narrative: Patient has been having vague abdominal pain, nausea, heartburn symptoms and some distension and constipation for months. Also noticed darker urine. Had endoscopy colonoscopy done at [facility] recently but does not know the results. Denies any heavy alcohol use. Related Data Allergies Allergy/AdvReac Type Severity Reaction Status Date / Time Penicillins Allergy Unknown Unknown Verified 09/17/24 15:11 Review of Systems Review of Systems: All systems reviewed & are unremarkable except as noted in HPI and below PMFSH Family History Family History (Updated 12/13/23 @ 01:04 by Birdie Maguire RN) Father Diabetes mellitus Kidney replaced by transplant Mother Heart disease Social History Social History Smoking packs per day: 1 Smoking cigarettes per day: 20.0 Smoking status: Current every day smoker Tobacco type: cigarettes Alcohol intake: current Drinks per week: 6 Substance use: current Substance use type: marijuana Do You Feel Safe in your Home?: Yes Lack of Transportation: No Lack of Food: Never True Current Housing: I Have Housing Concerned About Future Housing: No Difficulty Paying Gas/Electric Bills: No Difficulty Paying for Meds: No Currently Unemployed: No Education: Associate Degree Difficulty w/ Childcare or Family Care: No Spiritual care concerns: No Exam Narrative: EXAMINATION OF ORGAN SYSTEMS/BODY AREAS: Constitutional: Vital signs per nursing GENERAL:[No acute distress, non-toxic appearing.] HEAD: Normal with no signs of head trauma. EYES: EOMI, conjunctiva normal ENT: Hearing grossly intact LUNGS: Nonlabored breathing. HEART: [Regular rate and rhythm] ABD: [Soft], [nontender to palpation], slightly distended EXT: Normal range of motion SKIN: [No rashes or lesions.] NEURO: [Alert and oriented x 3. No gross focal sensory or strength deficits.] PSYCH: Normal affect Course Vital Signs Vital signs: Vital Signs Temperature 97.4 F L 09/17/24 15:14 Pulse Rate 71 09/17/24 15:14 Respiratory Rate 18 09/17/24 15:14 Blood Pressure 128/99 H 09/17/24 15:14 Pulse Oximetry 95 09/17/24 15:14 Temperature 97.4 F L 09/17/24 15:14 Pulse Rate 109 H 09/17/24 18:12 Respiratory Rate 20 09/17/24 18:12 Blood Pressure 111/72 09/17/24 16:31 Pulse Oximetry 95 09/17/24 16:31 MDM - Abdominal Pain MDM Narrative Medical decision making narrative: Electronic medical record was reviewed. Patient presented to the ED with complaint of [abdominal pain ongoing for months]. Vitals [were within acceptable limits]. Physical exam revealed soft abdomen with some distension, no significant tenderness. Based on the patient's history and physical exam, my differential includes but is not limited to [gastritis, gastroenteritis, cholecystitis, pancreatitis, SBO, cirrhosis, ACS]. [IV access was established by nursing staff. Patient was given zofran, famotidine, Protonix]. CBC, BMP, lipase, LFTs, bilirubin and alk phos were obtained. Labs were pertinent for elevated LFTs. [Decision was made to obtain a CT-abdomen to evaluate for acute abdominal process. CT-abdomen per radiology interpretation is unremarkable for acute intra-abdominal process, it does show fatty liver and improved multifocal pneumonia.] I did discuss findings with the patient and at bedside including fatty liver disease and concerned that it may developing to cirrhosis without lifestyle changes/improvement. We did also discuss the multifocal pneumonia, the patient tells me that he has been having these symptoms since he got sick 9 months ago. He is still smoking. Given this I will put him on breathing treatments. On reevaluation, the patient states that the
[2024-09-17 17:50] LABS: Bacteria Urine None Seen /hpf; Non Pathogenic Casts 0-2; RBC Urine 0-2 /hpf (0-2); Squamous Epithelial Cell Urine None Seen /hpf (Few); WBC Urine 0-5 /hpf (0-3)
[2024-09-17 17:59] LABS: Add Urine Microscopic? YES; Appearance Urine Clear (Clear); Bilirubin Urine 1+ (Negative); Blood Urine Trace-intact (Negative); Color Urine Yellow (Yellow); Glucose Urine UA Negative (Negative); Ketones Urine Trace mg/dL (Negative); Leukocyte Esterase Ur Negative LEU/UL (Negative); Nitrate Urine Negative (Negative); Protein Urine Trace mg/dL (Negative); pH Urine 6.5 (5.0-9.0)
[2024-09-17] MEDS: ALBUTEROL SULFATE NEB 2.5 MG/3 ML INH INHALATION (18:04)
== END 2024-09-17 18:43 | disposition home or self-care (01) ==
PROVIDERS: Emergency Provider Emergency Medicine
DX: J40 Bronchitis, not specified as acute or chronic (principal); R74.01 Elevation of levels of liver transaminase levels; K76.0 Fatty (change of) liver, not elsewhere classified; F17.210 Nicotine dependence, cigarettes, uncomplicated; R00.0 Tachycardia, unspecified; R94.31 Abnormal electrocardiogram [ECG] [EKG]
CPT/HCPCS: 36415; 71045; 74177; 80053; 81001; 83690; 84484; 85025; 93005; 94640; 96374; 96375; 99284; J2405; J2470; Q9967